=== PATIENT | male | born 1970 | race African-American/Black ===

== ENCOUNTER 2018-03-08 10:25 | Emergency (ER) | payer OTHER ==
[2018-03-08] MEDS ORDERED: 0.9 % SODIUM CHLORIDE 1,000 ML IV ONE (10:32)
[2018-03-08] MEDS ORDERED: ETOMIDATE 20 MG/10 ML IV ONE ×2 (10:32→10:47)
[2018-03-08] MEDS ORDERED: SUCCINYLCHOLINE CHLORIDE 20 MG/ML 10ML VIAL IVP ONE (10:47)
[2018-03-08] MEDS ORDERED: MIDAZOLAM HCL 5 MG/5 ML VIAL IVP ONE ×2 (10:59→11:00)
--- NOTE | 2018-03-08 11:01 | Diagnostic Imaging Report ---
PROSPER LUCIO [facility] [address] [facility] [address] [place], [place]. [address] Report Submission Date: Mar 08, 2018 10:54:50 AM ADVERTISING VICE PRESIDENT Patient Study Name: DARLINE KAUR Date: Mar 08, 2018 10:33:35 AM ADVERTISING VICE PRESIDENT Modality Type: DX Gender: M Description: CHEST : 74 Institution: [facility] Physician: PROSPER LUCIO Examination: Portable chest History: Evaluate lungs. RESPIRATORY DISTRESS (Hx) Comparison exam: None provided. Findings: Single view of the chest demonstrates significant diffuse bilateral patchy infiltrates. No definite blunting of the costophrenic margins. Articular degenerative. Impression: Diffuse bilateral parenchymal infiltrates highly suspicious for ARDS. No definite effusion. Electronically signed on Mar 08, 2018 10:54:50 AM ADVERTISING VICE PRESIDENT by: Russ NIXON
[2018-03-08] MEDS ORDERED: PROPOFOL 200 MG/20 ML VIAL IV ONE ×2 (11:02→11:03)
[2018-03-08] MEDS ORDERED: PROPOFOL 500 MG/50 ML VIAL IV ONE ×2 (11:06→11:08)
[2018-03-08 11:24] LABS: EOSINOPHILS % 1.6 % (0.0-6.8); MONOCYTES % 6.1 % (0.0-11.0)
[2018-03-08 11:25] LABS: BASOPHILS % 0.8 (0.0-1.5); NEUTROPHILS # 5.8 # k/uL (1.4-7.7)
[2018-03-08] MEDS ORDERED: PHENYLEPHRINE HCL 10 MG/1 ML IVP ONE (11:27)
[2018-03-08 11:42] LABS: eGFR (Non-African) > 60
--- NOTE | 2018-03-08 11:48 | ED Physician Documentation ---
Critical Care - HISTORIAN Historian: patient - HPI Stated Complaint: unresponsive Chief Complaint: General Adult Onset: minutes (30) Further Comments: yes (Per staff he was talking on phone and collapsed. CPR was initated and unknown amount of Narcan eas given. He was awake per EMS when he arrived. He denies any pain. He just is asking for a drink of water. Per staff his only history is asthma and he takes Nortryptyline at bedime. He did have an unknown amount of time with CPR no note of any shock or other life saving measures. He has no obvious injuries.) - INITIAL FINDINGS BY MEDICS Mentation: Alert Respirations: Dyspneic Rhythm: tachycardia - PRE-HOSPITAL TREATMENT Oxygen: oxygen CRP/Thumper: No IV Access: Yes IV Fluids: Yes Vasopressin Given?: No Amiodorone Given?: No Lidocaine Given?: No - ROS CONST: no problems - PAST HX Lung, Cardiac, DM: other (asthma ) - SOCIAL HX Smoking History: cigarettes Alcohol Use: other (Unknown) Drug Use: other (unknown ) - FAMILY HX Family History: No (unknown ) - REVIEWED ASSESSMENTS Nursing Assessment Reviewed: Yes Vitals Reviewed: Yes Progress - Progress Progress: 1045: on admission pt is thrashing in bed - on side - trying to get up. Spitting bright red blood at staff. Uncooperative for any commands. He had a small amount of bright red blood from right nare. He kept asking for a drink of water. He did state his name but stated we should call him "zabrina palencia". He was not allowing staff to asses or follow through on care.His lung sounds were course through out. No obvious injury. Bright red blood in his sputum. Decision was made to intubed pt due to frothy sputum and his uncooperative status. Anesthesia called for assist. Anesthesia assist with noted one attempt 7.5 - 24 at the teeth (Kelechi Flores) . Lung sounds noted throughout although continued course. Abdomen is slightly distended although soft. No obvious injuries on initial assessment. After intubation continued suction with blood foamy secretions removed. Anesthesia was at bedside for med orders. Dr Preciado notified and he will ride with pt to the [facility] and EMT. Dr Gilbert accepting at the [facility]. Report called. Dr Preciado at bedside for transfer. Pt was being mechanically ventilated and due to blood pressure meds were given prior to transport for aide in hypertension. DG ED Results Lab/Radiology - Lab Results Lab Results: Lab Results 03/08/18 03/08/18 03/08/18 11:15 11:15 11:06 WBC 10.50 K/ul K/ul (4.00-12.00) RBC 6.50 M/ul H M/ul (3.90-5.20) Hgb 18.8 g/dL H g/dL (12.0-18.0) Hct 55.9 % H % (37.0-53.0) MCV 86.0 fl fl (80.0-100.0) MCH 29.0 pg pg (28.0-34.0) MCHC 33.7 g/dL g/dL (30.0-36.0) RDW 13.9 % % (11.3-14.3) Plt Count 175 K/mm3 K/mm3 (130-400) Neut % (Auto) 55.8 % % (39.0-79.0) Lymph % (Auto) 35.7 % % (16.0-50.0) [place] % (Auto) 6.1 % % (0.0-11.0) Eos % (Auto) 1.6 % % (0.0-6.8) Baso % (Auto) 0.8 (0.0-1.5) Neut # (Auto) 5.8 # k/uL # k/uL (1.4-7.7) Lymph # (Auto) 3.7 # k/uL # k/uL (0.6-4.0) [place] # (Auto) 0.6 # k/uL # k/uL (0.0-0.9) Eos # (Auto) 0.2 # k/uL # k/uL (0.0-0.6) Baso # (Auto) 0.1 # k/uL # k/uL (0.0-0.5) PT 12.4 Seconds H Seconds (9.4-11.6) INR 1.18 (0.9-1.2) Sodium 138 mmol/L mmol/L (136-145) Potassium 3.3 mmol/L L mmol/L (3.5-5.1) Chloride 107 mmol/L mmol/L (98-107) Carbon Dioxide 21 mmol/L L mmol/L (22-30) BUN 12 mg/dL mg/dL (9-20) Creatinine 1.10 mg/dL mg/dL (0.66-1.25) Estimated Creat Clear 86 Est GFR ( Amer) > 60 (60 - ) Est GFR (Non-Af Amer) > 60 (60 - ) Glucose 244 mg/dL H mg/dL (74-106) Calcium 7.6 mg/dL L mg/dL (8.4-10.2) Total Bilirubin 1.2 mg/dL mg/dL (0.2-1.3) AST 106 U/L H U/L (15-46) ALT 92 U/L H U/L (13-69) Alkaline Phosphatase 71 U/L U/L (38-126) Total Protein 5.8 g/dL L g/dL (6.3-8.2) Albumin 3.2 g/dL L g/dL (3.5-5.0) - Orders Orders: ED Orders Category Date Time Status CHEST 1VIEW [RAD] Routine Exams 03/08/18 Completed CHEST 1VIEW [RAD] Routine Exams 03/08/18 Taken CBC/PLATELET/DIFF Stat Lab 03/08/18 11:06 Completed CKMB Stat Lab 03/08/18 11:15 Received CMP Stat Lab 03/08/18 11:15 Completed PTINR [PT-INR] Routine Lab 03/08/18 11:15 Completed TROPONIN I (cTnI) Stat Lab 03/08/18 11:15 Received Etomidate [Amidate] Med 03/08/18 10:32 Discontinued 20 mg IV .STK-MED ONE Midazolam HCl/Pf [Versed] Med 03/08/18 10:59 Discontinued 10 mg IVP .STK-MED ONE Propofol Med 03/08/18 11:08 Discontinued 500 mg IV .STK-MED ONE Propofol [Diprivan] Med 03/08/18 11:02 Discontinued 200 mg IV .STK-MED ONE Discharge Clincal Impression: ARDS (adult respiratory distress syndrome) Referrals: Trent Shields III, MD [Primary Care Provider] - 2 Days Comments: Dr Gilbert accepting [facility] 1109 Condition: Critical Disposition: 02 XFER [id number]-TRM HOSP Decision to Admit: NO Date of Decison to Admit: 03/08/18 Decision Time: 11:04
[2018-03-08 12:46] VITALS: BP 81/46
[2018-03-08] MEDS ORDERED: LACTATED RINGERS 1,000 ML IV ONE (14:35)
--- NOTE | 2018-03-08 14:44 | Diagnostic Imaging Report ---
PROSPER LUCIO [facility] [address] [facility] [address] [place], [place]. [address] Report Submission Date: Mar 08, 2018 11:10:26 AM STORE PROTECTION SPECIALIST Patient Study Name: DARLINE KAUR Date: Mar 08, 2018 10:48:53 AM STORE PROTECTION SPECIALIST Modality Type: DX Gender: M Description: CHEST : 74 Institution: [facility] Physician: PROSPER LUCIO Portable chest History: Post intubation Portable chest dated March 08, 2018 at 10:48 a.m. is compared with an earlier radiograph obtained on the same date. There is diffuse, unchanged bilateral airspace disease. A hand overlies the mediastinum and left upper lobe, limiting assessment. However, a nasogastric tube is seen passing through the GE junction and an endotracheal tube projects at the level of the aortic knob but its exact relationship relative to the chacha cannot be ascertained due to the overlying density. Impression: Diffuse bilateral airspace disease. Please see body of report with regard to detail of the lines and tubes. Electronically signed on Mar 08, 2018 11:10:26 AM STORE PROTECTION SPECIALIST by: Michaelle NIXON
== END 2018-03-08 11:20 | disposition short-term general hospital (02) ==
LOC: ED 10:25
DX: J80 Acute respiratory distress syndrome (principal); R04.2 Hemoptysis; Z72.0 Tobacco use
CPT/HCPCS: 31500; 36415; 71045; 80053; 82553; 84484; 85025; 85610; 96374; 96375; 99285; J0330; J2250; J2370; J2704; J3490; J7030; J7120; J2307; S1016